=== PATIENT | male | born 1935 | race Caucasian/White ===

== ENCOUNTER 2017-07-27 10:56 | Observation (INO) | payer MEDICARE, OTHER ==
[2017-07-27 11:48] LABS: #Basophils 0.1 thou/uL (0.0-0.2); #Eosinphils 0.4 thou/uL (0.0-0.7); #Lymphocytes 1.9 thou/uL (1.20-3.40); #Monocytes 0.5 thou/uL (0.11-0.59); #Neutrophils 6.3 thou/uL (1.40-6.50); %Basophils 0.6 % (0.0-1.0); %Eosinophils 4.4 % (0.0-10.0); %Lymphocytes 21.1 % (21.0-51.0); %Monocytes 5.8 % (0.0-10.0); Hematocrit 51.3 % (42.0-52.0); Mean Platelet Volume 8.5 fL (7.4-10.4); White Blood Cell (WBC) Count 9.2 thou/uL (4.8-10.8)
[2017-07-27 12:10] LABS: ALT (SGPT) 18 U/L (8-55); AST (SGOT) 19 U/L (5-34); Alkaline Phosphatase 78 U/L (40-150); Anion Gap 13 mmol/L (10-20); BUN (Urea Nitrogen) 12 mg/dL (8.4-25.7); Bilirubin, Total 0.8 mg/dL (0.2-1.2); CK (CPK) 111 U/L (30-200); Calc. Creatinine Clearance 0 mL/min (70-130); Calcium 9.1 mg/dL (7.8-10.44); Carbon Dioxide 25 mmol/L (23-31); Chloride 104 mmol/L (98-107); Estimated GFR-MDRD Greater than 90; Globulin 2.9 g/dL (2.4-3.5); Protein, Total 6.8 g/dL (5.8-8.1)
[2017-07-27 12:19] LABS: Lactic Acid - Sepsis 2.2 mmol/L (0.5-2.2)
--- NOTE | 2017-07-27 12:20 | RAD ---
PORTABLE UPRIGHT FRONTAL CHEST RADIOGRAPH 07/27/2017 COMPARISON: None. HISTORY: Fall, weakness, unsteadiness. FINDINGS: Mild increased linear interstitial density noted bilaterally, right greater than left. There is ath erosclerotic calcification in the aortic arch. No pneumothorax, pleural fluid, focal consolidation, or alveolar edema. IMPRESSION: No acute findings. POS: [facility]
[2017-07-27 12:21] LABS: Troponin I Less than 0.010 ng/mL (< 0.028)
--- NOTE | 2017-07-27 12:51 | RAD ---
LEFT SHOULDER THREE VIEWS: HISTORY: An 82-year-old male with left shoulder pain following an injury while falling yesterday from dizzine ss. FINDINGS: Three views of the left shoulder demonstrate arthrosis changes of the AC joint and glenohumeral join t. No acute fracture or dislocation. IMPRESSION: Degenerative changes without fracture or dislocation. POS: [facility]
--- NOTE | 2017-07-27 13:59 | CT ---
NONCONTRAST CT CERVICAL SPINE 07/27/2017 HISTORY: Bilateral shoulder pain and back pain after a fall. TECHNIQUE: Contiguous axial CT images are obtained through the cervical spine from the level of the skull base to the T1-2 level. Sagittal and coronal reformatted images are provided. FINDINGS: There are post-surgical changes at the C1-2 level with metallic cerclage wires transfixing the poste rior elements of C1 and C2. There is trace anterolisthesis of C3 on C4 and C4 on C5 likely related to prominent facet degenerative changes. There is fusion of the C2 and C3 vertebral bodies with sug gestion of fusion of the posterior elements of the C3 and C4 vertebral bodies. The vertebral body heights are within normal limits. Multilevel degenerative changes are present wi th narrowing of intervertebral disk spaces at all levels of the cervical spine. Prominent multileve l facet hypertrophic changes with multilevel severe neural foraminal narrowing due to bony encroachm ent as well as mild degrees of central canal narrowing again related to bony encroachment. No acute fracture seen involving the cervical spine. Prevertebral soft tissues are within normal limits. Prominent vascular calcifications seen in the carotid arteries. Mild chronic lung changes seen in the upper lobes bilaterally, asymmetrically greater on the right. IMPRESSION: 1. No acute fracture is visualized. 2. Fusion of the C1-2, C2-3, and C3-4 levels. 3. Trace anterolisthesis of C3 on C4 and C4 on C5. 4. Multilevel degenerative changes with multilevel severe bilateral neural foraminal narrowing due t o prominent bony encroachment. POS: [facility]
--- NOTE | 2017-07-27 14:12 | CT ---
CT ANGIOGRAM THORAX WITH IV CONTRAST AND 3D RECONSTRUCTIONS: 07/27/2017 HISTORY: The patient complains of shoulder pain and back pain, as well as dizziness. COMPARISON: None available. FINDINGS: No filling defects are seen in the pulmonary arteries to suggest a pulmonary embolus. The thoracic aorta is unopacified, as this exam was tailored for evaluation of the pulmonary arteries. Vascular calcifications are seen in the thoracic aorta and, to a lesser extent, involving the coronary arteri es. The thoracic aorta is normal in caliber. The mediastinal structures otherwise have a normal CT appearance. There is dependent atelectasis bilaterally. This exam was also obtained in the expiratory phase of imaging. There is an approximately 4 mm nodular density in the right middle lobe, which cannot be f urther characterized. There is also a small pleural-based nodular density along the most superior a spect of the left major fissure, which measures 4 mm as well. No pleural effusion is present. Mini mal calcified pleural-based plaques are seen at the left lung base. A few calcified granuloma are seen within the right lung. Calcified granuloma are seen in the liver and spleen. Multilevel degenerative changes are seen in the thoracic spine. IMPRESSION: 1. No CT evidence of a pulmonary embolus. 2. Vascular calcifications in the thoracic aorta. The thoracic aorta is not opacified for evaluati on of aortic dissection, but no significant aneurysmal dilatation of the thoracic aorta is appreciat ed. 3. Tiny, approximately 4 mm nodular densities, which appear pleural-based in both the right upper l van zones. POS: [facility]
--- NOTE | 2017-07-27 14:15 | CT ---
BRAIN CT WITHOUT IV CONTRAST: Date: 07/27/17 HISTORY: 82-year-old male with history of fall today and yesterday, with weakness and unsteadiness. FINDINGS: Maxillary, sphenoid, and ethmoid sinus mucosal changes are noted. There is atrophy and chronic white matter ischemic changes noted. There is asymmetry of the sulci in the right posterior frontal regio n compared to the left with the right sulci being much less evident. This raises concern for the pos sibility of some subtle subarachnoid hemorrhage associated with this. There is no obvious mass. IMPRESSION: Much less prominent sulci in the right posterior frontal region raising the concern for the possibil ity of some subarachnoid hemorrhage. Findings discussed with Dr. Martinez at approximately 1330 hours. A noncontrast MRI is recommended t o include gradient echo sequence. Sinus mucosal disease. Other findings as above. CODE CR. POS: [facility]
--- NOTE | 2017-07-27 15:03 | MRI ---
BRAIN MRI WITHOUT CONTRAST 07/27/2017 COMPARISON: None. HISTORY: Abnormal head CT, also performed 07/27/2017, demonstrating concern for possible subarachnoid hemorrh age in the right frontal region near the vertex. TECHNIQUE: Multiplanar, multisequence MR imaging of the brain is obtained without contrast. FINDINGS: The diffusion weighted imaging demonstrates no evidence for acute infarction. Axial gradient echo imaging demonstrates no evidence for intracranial hemorrhage. The CT exam performed 07/27/2017 demonstrates a paucity of cortical sulci in the frontal lobe near t he vertex on the right raising concern for a possible subarachnoid hemorrhage. This exam demonstrat es no evidence for subarachnoid hemorrhage in this region. There is an overall moderate degree of c erebral volume loss with relative sparing in the right frontal region in the area of questionable ab normality on prior CT. Arterial flow voids at the axial level of the skull base appear grossly unremarkable on the T2-weigh geoffrey imaging. There is mild mucosal thickening involving the maxillary sinus posteriorly on the right. There is n o midline shift or mass effect. IMPRESSION: Diffuse cerebral volume loss with relative sparing in the right frontal region near the vertex, whic h is the apparent cause for the questionable abnormality seen on recent CT exam. There is no eviden ce for intracranial hemorrhage in this region. No acute infarction. POS: [facility]
[2017-07-27 15:31] LABS: Bilirubin Negative (Negative); Blood, Urine Negative (Negative); Glucose, Urine (Dipstick) Negative (Negative); Ketone, Urine Negative (Negative); Nitrite Negative (Negative); Protein, Urine (Dipstick) Negative (Neg-Trace); Urobilinogen 0.2 mg/dL (0.2-1.0)
[2017-07-27] MEDS ORDERED: ISOVUE-370 76%-LOCM 1 ML ONE (15:40)
[2017-07-27 15:44] LABS: Bacteria/HPF None Seen HPF (None Seen); Hyaline Casts/LPF NONE SEEN LPF (0-3 Hyaline); RBC/HPF None Seen HPF (0-3); Squamous Epithelial 0-3 HPF (0-3)
[2017-07-27 17:10] LABS: Troponin I Less than 0.010 ng/mL (< 0.028)
[2017-07-27] MEDS ORDERED: Ondansetron ODT 4 MG TAB SL PRN (18:33)
[2017-07-27] MEDS ORDERED: Acetaminophen 325 MG TAB PO PRN ×2 (18:33→19:27)
[2017-07-27] MEDS ORDERED: HYDROcodone/Acetaminophen 5/325 mg Tablet PO PRN ×3 (18:33→19:27)
[2017-07-27] MEDS ORDERED: Ondansetron HCl/PF 4 MG/2 ML Vial IVP PRN (18:33)
--- NOTE | 2017-07-27 18:41 | HP ---
PRIMARY CARE PHYSICIAN: Kwadwo Wall M.D. CHIEF COMPLAINT: Chest pain after fall. HISTORY OF PRESENT ILLNESS: Mr. Fofana is an 82-year-old white male with a history of peripheral hilario ropathy and BPH who presents to the emergency department for episode of fall today and soreness. Th e patient states he has been having 2 days of unsteadiness. He describes as dizziness, but denies a ny feeling of syncope or presyncope. Denies any vertigo or spinning. Today, he got up to go somewhere in the house and lost his balance, fell forward into a wall, hittin g his head and chest yesterday. He has got a persistent left shoulder and left anterior chest pain. No shortness of breath, no naus ea, vomiting or diaphoresis, no fevers or chills. No cough or sputum production. Soreness persiste d, so he was brought to the emergency department for evaluation by his daughter. The patient states he does not fall frequently; however, apparently he fell a couple of months ago. He said last time he fell was about 10 years ago, but did recall the episode when his daughter brou ght it up. In the emergency department, workup was negative. We were called to admit for cardiac chest pain. On further evaluation, the patient's blood pressure has been borderline normal. He has been on Lasi x for peripheral edema which he currently has none. Orthostatics were not done. I suspect he may b e volume depleted. PAST MEDICAL HISTORY: No significant problems other than peripheral neuropathy and BPH. PAST SURGICAL HISTORY: 1. Bilateral TKA. 2. C-spine fusion. HOME MEDICATIONS: 1. Gabapentin 600 mg p.o. b.i.d. 2. Lasix 20 mg p.o. q.a.m. 3. Valium 10 mg 1-2 p.o. q8 hours p.r.n. 4. Detrol 2 mg p.o. at bedtime. 5. Hydrocodone/APAP 06/30/25 p.o. as needed. 6. Mucinex 600 mg p.o. b.i.d. ALLERGIES: NKDA. FAMILY HISTORY: Negative for clotting or bleeding disorder, no immune dysfunction. SOCIAL HISTORY: Significant for tobacco. He smokes almost a pack a day for the last 70+ years. No drugs or alcohol. He lives alone. REVIEW OF SYSTEMS: A 10-point review of systems was performed. The patient denies all systems exce pt as stated per HPI. PHYSICAL EXAMINATION: VITAL SIGNS: Temperature 97.9, pulse 64, blood pressure 115/47, respiratory 16, satting 95% on room air. Review of his blood pressure shown dropping down to 80s systolic. GENERAL: He is awake. He is alert. He is oriented x3. He is an obese white male, appears to be i n no acute distress. HEENT: Normocephalic, atraumatic. Pupils equal, round, reactive to light bilaterally, mucous membr anes are moist. He had no visible lesions. No thrush. NECK: Supple, without lymphadenopathy, JVD, or thyromegaly. LUNGS: Clear. He has no wheezes, no rales or rhonchi. No prolonged expiratory phase. CARDIOVASCULAR: Normal S1, S2. No S3 or S4. No audible murmurs. ABDOMEN: Obese, it is nontender, nondistended. I cannot palpate hepatosplenomegaly. EXTREMITIES: No signs of clubbing, no edema. He has 2+ peripheral pulses, dorsalis pedis, posterio r tibial, and radial arteries. SKIN: Warm, moist, and well perfused without any rashes or lesions. He has no ecchymosis. MUSCULOSKELETAL: It is normal to inspection with good range of motion. He has no inflamed joints a nd no palpable joint effusions. NEUROLOGIC: Cranial nerves II-XII to be grossly intact without any focal neurologic deficits. He h as had normal speech and 5/5 strength. LABORATORY DATA: CMP is completely within normal limits. Potassium 4.7, creatinine 0.79, glucose o f 112 and liver functions normal. Lipase less than 4. CBC showed a white count of 9.2, hemoglobin is normal, hematocrit of 51.3, platelets 194,000. RADIOGRAPHIC STUDIES: Brain MRI is negative for acute infarct. A CT angiogram was negative for pul monary embolus. He did have 2-4 mm nodules in the right upper lobe. Brain CT was negative. ASSESSMENT AND PLAN: 1. Presyncope or dizziness. Etiology not clear. We will watch him on telemetry. Place him on obs ervation overnight. We will get orthostatics. Suspect his Lasix has dried him out. He is not selma rely dehydrated as his creatinine is normal. We will recheck his morning labs and watch his I's and O's very closely. We will hold his Lasix. 2. Musculoskeletal chest pain: The patient developed pain after falling to the wall. I do not bel ieve this is cardiac at all. 3. Peripheral neuropathy, on Neurontin. We will continue. 4. Peripheral edema, Lasix on hold. 5. Benign prostatic hypertrophy. We will continue. 6. Chronic pain, on hydrocodone. We will continue. We will place the patient on observation overnight on telemetry and watch. If everything looks grea t, will likely to go home in the morning. The case was discussed with the daughter who was at the [facility]. The patient is FULL CODE and she is the next of kin if there is any problem.
[2017-07-27] MEDS ORDERED: Aspirin 325 MG TAB PO SCH (18:45)
[2017-07-27] MEDS ORDERED: HYDROcodone/Acetaminophen 10/325 mg Tablet PO PRN ×2 (19:27→20:10)
[2017-07-27] MEDS ORDERED: Ondansetron ODT 4 MG TAB PO PRN (19:27)
[2017-07-27 19:57] LABS: Troponin I Less than 0.010 ng/mL (< 0.028)
[2017-07-27] MEDS: Sodium Chloride 0.9% 1,000 ML IV SCH (20:46)
[2017-07-27] MEDS: Famotidine 20 MG TAB PO SCH (20:47)
[2017-07-27] MEDS: Nicotine 14 MG PATCH TD SCH ×2 (20:48→21:16)
[2017-07-27 22:35] VITALS: BMI 39.2
[2017-07-28 05:04] LABS: #Basophils 0.1 thou/uL (0.0-0.2); #Eosinphils 0.4 thou/uL (0.0-0.7); #Lymphocytes 3.2 thou/uL (1.20-3.40); #Monocytes 0.7 thou/uL (0.11-0.59); #Neutrophils 4.4 thou/uL (1.40-6.50); %Basophils 1.1 % (0.0-1.0); %Eosinophils 4.8 % (0.0-10.0); %Lymphocytes 36.4 % (21.0-51.0); %Monocytes 8.1 % (0.0-10.0); Hematocrit 45.3 % (42.0-52.0); Mean Platelet Volume 8.7 fL (7.4-10.4); Red Blood Cell (RBC) Count 4.44 mill/uL (4.70-6.10); White Blood Cell (WBC) Count 8.9 thou/uL (4.8-10.8)
[2017-07-28] MEDS: Sodium Chloride 0.9% 1,000 ML IV SCH (05:12)
[2017-07-28 05:20] LABS: Anion Gap 10 mmol/L (10-20); BUN (Urea Nitrogen) 11 mg/dL (8.4-25.7); Calc. Creatinine Clearance 127 mL/min (70-130); Calcium 8.6 mg/dL (7.8-10.44); Carbon Dioxide 27 mmol/L (23-31); Chloride 104 mmol/L (98-107); Estimated GFR-MDRD Greater than 90; Magnesium 1.8 mg/dL (1.6-2.6)
[2017-07-28 05:23] LABS: Troponin I Less than 0.010 ng/mL (< 0.028)
[2017-07-28 07:57] VITALS: TEMP 97.7
[2017-07-28] MEDS: Famotidine 20 MG TAB PO SCH (08:16)
[2017-07-28] MEDS ORDERED: Enoxaparin Sodium 40 MG/0.4 ML SYRINGE SC SCH (09:00)
[2017-07-28 12:09] VITALS: BP 146/76
--- NOTE | 2017-07-28 14:13 | DIS ---
DATE OF ADMISSION: 07/27/2017 DATE OF DISCHARGE: 07/28/2017 DISCHARGE DIAGNOSES: 1. Orthostasis. 2. Dehydration secondary to Lasix. 3. Fall from same level causing injury. 4. Musculoskeletal chest pain secondary to fall. 5. Peripheral neuropathy. 6. Chronic back pain. 7. History of cervical spine stenosis status post fusion. CONSULTATIONS: Physical therapy. PROCEDURES: None. HISTORY AND PHYSICAL: Mr. Fofana is an 82-year-old male who has had a couple of days of worsened diz ziness than normal and has had multiple falls at home. This last time, he fell one day prior to admission on 07/26 and ran his chest into the wall. He con tinued to have chest soreness through the and into , so presented in the Emergency Departme for evaluation. There, initial exam showed normal labs, his vital signs appeared normal and we were called for a wor kup for cardiac chest pain. HOSPITAL COURSE: The patient was seen and examined in the Emergency Department and was immediately cleared. This was not a cardiac chest pain issue. His pain was across the precordium and tender to palpation, worse with movement. On review of his medicines, it looks like he had been taking Lasix p.r.n. for edema and blood pressu re was borderline normal. The patient was placed in observation and taken to the floor. Initial or thostatics on arrival showed him to drop 35 points systolic over 20 points diastolic when changing p ositions. He was given IV fluids and watched overnight. His serial cardiac biomarkers were negativ e, his telemetry remained normal. The patient was seen in the morning of 07/28, after fluids his repeat orthostatics showed no drop an d in fact a slight increase in pressure going from lying to sitting to standing. His telemetry dinora ined negative and moderate markers are normal. Physical therapy was consulted who saw the patient, and felt he would benefit from home health care with physical therapy. An arrangement was made for the patient to be discharged, his daughter did come in and we discussed his current level of needs and what his insurance will cover. At the end, the daughter was agreeabl e to home physical therapy. PHYSICAL EXAMINATION: The patient was seen and examined on the day of discharge. Discharge plan an d disposition were discussed with the patient [id number] at the bedside. DISCHARGE MEDICATIONS: 1. Valium 10 mg p.o. t.i.d. p.r.n. 2. Gabapentin 600 mg p.o. t.i.d. 3. Hydrocodone p.r.n. 10/325 one q.8 hours. 4. Detrol 2 mg p.o. at bedtime. 5. Guaifenesin 600 mg p.o. b.i.d. p.r.n. cough. 6. His Lasix has been held. FOLLOWUP APPOINTMENTS: 1. Primary care physician, Dr. Kwadwo Wall, within a week. 2. Home physical therapy to see the patient. DISCHARGE CONDITION: Stable. DISPOSITION: The patient will be discharged home via private vehicle. INSTRUCTIONS: Patient to return for worsening symptoms, new falls or injuries or change in status.
== END 2017-07-28 15:07 | disposition home or self-care (01) ==
LOC: ERS 10:56 → 2NO 17:58
PROVIDERS: ADMIT Internal Medicine Infectious Disease; ATTEND Internal Medicine Infectious Disease
DX: I95.1 Orthostatic hypotension (principal); E86.0 Dehydration; R07.89 Other chest pain; G62.9 Polyneuropathy, unspecified; G89.29 Other chronic pain; F17.210 Nicotine dependence, cigarettes, uncomplicated; Z79.899 Other long term (current) drug therapy; Z98.1 Arthrodesis status; Z98.890 Other specified postprocedural states; Z91.81 History of falling
CPT/HCPCS: 70450; 70551; 71010; 71275; 72125; 73030; 80048; 80053; 82550; 82553 ×3; 83605; 83690; 83735; 84484 ×3; 85025 ×2; 87086; 93005; 96360; 96361 ×2; 96372; 97116; 97139 ×2; 97530; 99285; G0378; G8978; G8979; 36415; 81003; 81015; J1650

== ENCOUNTER 2017-07-29 11:32 | Emergency (ER) | payer MEDICARE, OTHER ==
--- NOTE | 2017-07-29 13:04 | RAD ---
RIGHT RIBS: HISTORY: Trauma. Fall with injury to right chest. FINDINGS: No evidence of rib fracture identified. No other rib lesions seen. IMPRESSION: No evidence of right rib fracture. POS: [facility]
[2017-07-29 14:55] LABS: #Basophils 0.1 thou/uL (0.0-0.2); #Eosinphils 0.2 thou/uL (0.0-0.7); #Lymphocytes 2.3 thou/uL (1.20-3.40); #Monocytes 1.3 thou/uL (0.11-0.59); #Neutrophils 10.7 thou/uL (1.40-6.50); %Basophils 0.7 % (0.0-1.0); %Eosinophils 1.5 % (0.0-10.0); %Lymphocytes 15.9 % (21.0-51.0); %Monocytes 8.8 % (0.0-10.0); Hematocrit 49.9 % (42.0-52.0); Mean Platelet Volume 8.3 fL (7.4-10.4); Red Blood Cell (RBC) Count 4.93 mill/uL (4.70-6.10); White Blood Cell (WBC) Count 14.7 thou/uL (4.8-10.8)
[2017-07-29 15:15] LABS: ALT (SGPT) 18 U/L (8-55); AST (SGOT) 25 U/L (5-34); Alkaline Phosphatase 78 U/L (40-150); Anion Gap 17 mmol/L (10-20); BUN (Urea Nitrogen) 10 mg/dL (8.4-25.7); Bilirubin, Total 1.3 mg/dL (0.2-1.2); Calc. Creatinine Clearance 0 mL/min (70-130); Calcium 9.2 mg/dL (7.8-10.44); Carbon Dioxide 21 mmol/L (23-31); Chloride 102 mmol/L (98-107); Estimated GFR-MDRD Greater than 90; Globulin 2.8 g/dL (2.4-3.5); Protein, Total 6.6 g/dL (5.8-8.1)
[2017-07-29] MEDS ORDERED: Ketorolac Tromethamine 30 MG/ML VIAL ONE (16:31)
[2017-07-29 16:35] LABS: Bilirubin Negative (Negative); Blood, Urine Trace (Negative); Glucose, Urine (Dipstick) Negative (Negative); Ketone, Urine 15 mg/dL (Negative); Nitrite Negative (Negative); Protein, Urine (Dipstick) Negative (Neg-Trace)
[2017-07-29 16:37] LABS: Bacteria/HPF None Seen HPF (None Seen); Hyaline Casts/LPF 0-3 HYALINE CAST LPF (0-3 Hyaline); Squamous Epithelial 0-3 HPF (0-3)
[2017-07-29 16:56] LABS: Renal Epithelial 0-3 HPF (0-3); Transitional Epithelial 0-3 HPF (0-3)
--- NOTE | 2017-08-08 12:54 | EKG ---
Test Reason : ERS.NMA Blood Pressure : / mmHG Vent. Rate : 078 BPM Atrial Rate : 078 BPM P-R Int : 176 ms QRS Dur : 078 ms QT Int : 388 ms P-R-T Axes : 064 002 030 degrees QTc Int : 442 ms Sinus rhythm with Premature supraventricular complexes and with occasional Premature ventricular com plexes Possible Left atrial enlargement Borderline ECG Confirmed by JOSE QUIÑONES MD ([id number]), technical writer and editor THIERRY CAMPUZANO ([id number]) on 08/08/2017 12:54:28 PM Referred By: Confirmed By:JOSE QUIÑONES MD
== END 2017-07-29 17:30 | disposition home or self-care (01) ==
LOC: ERS 11:32
DX: S20.211A Contusion of right front wall of thorax, initial encounter (principal); F17.210 Nicotine dependence, cigarettes, uncomplicated; Z79.891 Long term (current) use of opiate analgesic; Z79.899 Other long term (current) drug therapy; W01.190A Fall on same level from slipping, tripping and stumbling with subsequent striking against furniture, initial encounter
CPT/HCPCS: 36415; 51701; 80053; 81003; 81015; 85025; 93005; 96372; J1885

== ENCOUNTER 2021-03-17 22:51 | Inpatient (IN) | payer MEDICARE, OTHER ==
[2021-03-17 23:32] LABS: #Basophils 0.1 thou/uL (0.0-0.2); #Lymphocytes 1.8 thou/uL (1.20-3.40); #Neutrophils 6.7 thou/uL (1.40-6.50); %Basophils 0.6 % (0.0-1.0); %Eosinophils 0.2 % (0.0-10.0); %Lymphocytes 18.9 % (21.0-51.0); %Monocytes 10.5 % (0.0-10.0); %Neutrophils 69.8 % (42.0-75.0); Hemoglobin 14.6 g/dL (14.0-18.0); Mean Corpuscular HGB CONC 34.2 g/dL (32.0-36.0); Mean Corpuscular Hemoglobin 34.6 pg (27.0-31.0); Mean Platelet Volume 8.3 fL (7.4-10.4); Platelet Count 190 thou/uL (130-400); RBC Distribution Width 11.8 % (11.5-14.5); Red Blood Cell (RBC) Count 4.21 mill/uL (4.70-6.10); White Blood Cell (WBC) Count 9.6 thou/uL (4.8-10.8)
[2021-03-18 00:29] LABS: Albumin 3.5 g/dL (3.4-4.8)
[2021-03-18 00:30] LABS: Chloride 103 mmol/L (98-107); Potassium 4.3 mmol/L (3.5-5.1); Sodium 141 mmol/L (136-145)
[2021-03-18 00:31] LABS: Calcium 8.6 mg/dL (7.8-10.44)
[2021-03-18 00:32] LABS: Globulin 2.9 g/dL (2.4-3.5); Glucose 121 mg/dL (83-110); Protein, Total 6.4 g/dL (5.8-8.1)
[2021-03-18 00:33] LABS: Anion Gap 17 mmol/L (10-20); Bilirubin, Total 1.3 mg/dL (0.2-1.2); Carbon Dioxide 25 mmol/L (23-31)
[2021-03-18 00:35] LABS: Alkaline Phosphatase 70 U/L (40-110); Calc. Creatinine Clearance 0 mL/min (70-130)
[2021-03-18 00:36] LABS: BUN (Urea Nitrogen) 13 mg/dL (8.4-25.7)
[2021-03-18 00:36] LABS: Bacteria/HPF None Seen HPF (None Seen); Bilirubin Negative (Negative); Blood, Urine 2+ (Negative); Clarity Clear (Clear); Glucose, Urine (Dipstick) Normal (Negative); Ketone, Urine Trace mg/dL (Negative); Leukocyte 500 Leu/uL (Negative); Nitrite Negative (Negative); Protein, Urine (Dipstick) 20 mg/dL (Neg-Trace); Squamous Epithelial None Seen HPF (0-3); Urobilinogen Normal mg/dL (Less than 2); pH, Urine 5.5 (5.0-9.0)
[2021-03-18 00:37] LABS: ALT (SGPT) 15 U/L (8-55); AST (SGOT) 35 U/L (5-34)
[2021-03-18 00:38] LABS: CK (CPK) 812 U/L (30-200)
[2021-03-18] MEDS ORDERED: cefTRIAXone\\ROCEPHIN 2 GM VIAL ONE (01:12)
[2021-03-18] MEDS ORDERED: Ondansetron PF 4 MG/2 ML Vial IVP PRN (03:50)
[2021-03-18] MEDS ORDERED: Acetaminophen 325 MG TAB PO PRN (03:50)
[2021-03-18] MEDS ORDERED: Acetaminophen 650 MG Suppository PR PRN (03:50)
[2021-03-18] MEDS ORDERED: Ondansetron ODT 4 MG TAB PO PRN (03:50)
[2021-03-18 04:41] VITALS: BMI 26.9
[2021-03-18] MEDS: HYDROcodone/Acetaminophen 5/325 mg Tablet PO PRN ×3 (05:10→18:11)
[2021-03-18] MEDS: cefTRIAXone\\ROCEPHIN 1 GM in Sodium Chloride 0.9% 100 ML IVPB SCH (06:23)
[2021-03-18] MEDS: Enoxaparin Sodium 40 MG/0.4 ML SYRINGE SC SCH (07:57)
[2021-03-18] MEDS ORDERED: Mineral Oil ENEMA PR SCH (08:45)
[2021-03-18 10:54] LABS: SARS-CoV-2 PCR by NAA Not Detected (NotDetected)
[2021-03-19] MEDS: cefTRIAXone\\ROCEPHIN 1 GM in Sodium Chloride 0.9% 100 ML IVPB SCH (05:10)
[2021-03-19] MEDS: HYDROcodone/Acetaminophen 5/325 mg Tablet PO PRN ×3 (05:16→14:37)
[2021-03-19 06:02] LABS: #Eosinphils 0.3 thou/uL (0.0-0.7); #Lymphocytes 1.6 thou/uL (1.20-3.40); #Monocytes 0.5 thou/uL (0.11-0.59); #Neutrophils 4.7 thou/uL (1.40-6.50); %Basophils 0.5 % (0.0-1.0); %Eosinophils 4.5 % (0.0-10.0); %Lymphocytes 22.1 % (21.0-51.0); %Monocytes 7.5 % (0.0-10.0); %Neutrophils 65.4 % (42.0-75.0); Hemoglobin 12.6 g/dL (14.0-18.0); Mean Corpuscular HGB CONC 34.7 g/dL (32.0-36.0); Mean Corpuscular Hemoglobin 34.7 pg (27.0-31.0); Mean Corpuscular Volume 99.8 fL (78.0-98.0); Mean Platelet Volume 7.7 fL (7.4-10.4); Platelet Count 165 thou/uL (130-400); RBC Distribution Width 11.6 % (11.5-14.5); Red Blood Cell (RBC) Count 3.64 mill/uL (4.70-6.10); White Blood Cell (WBC) Count 7.1 thou/uL (4.8-10.8)
[2021-03-19 06:26] LABS: Anion Gap 10 mmol/L (10-20); BUN (Urea Nitrogen) 10 mg/dL (8.4-25.7); Calc. Creatinine Clearance 85 mL/min (70-130); Calcium 8.5 mg/dL (7.8-10.44); Carbon Dioxide 25 mmol/L (23-31); Chloride 105 mmol/L (98-107); Glucose 94 mg/dL (83-110); Potassium 3.3 mmol/L (3.5-5.1); Sodium 137 mmol/L (136-145)
[2021-03-19] MEDS: Enoxaparin Sodium 40 MG/0.4 ML SYRINGE SC SCH (08:19)
[2021-03-20] MEDS: cefTRIAXone\\ROCEPHIN 1 GM in Sodium Chloride 0.9% 100 ML IVPB SCH (05:13)
[2021-03-20] MEDS: HYDROcodone/Acetaminophen 5/325 mg Tablet PO PRN ×2 (08:11→18:05)
[2021-03-20] MEDS: Enoxaparin Sodium 40 MG/0.4 ML SYRINGE SC SCH (08:12)
[2021-03-20 08:38] VITALS: TEMP 97.8
[2021-03-20 09:51] VITALS: BP 135/80
== END 2021-03-20 18:22 | disposition home or self-care (01) | DRG 558 ==
LOC: ERS 22:51 → T4-A 03-18 02:39 → OBSVTOIN 03-20 10:10
PROVIDERS: ADMIT Student in an Organized Health Care Education/Training Program; ATTEND Internal Medicine
DX: M62.82 Rhabdomyolysis (principal); N39.0 Urinary tract infection, site not specified; F03.90 Unspecified dementia, unspecified severity, without behavioral disturbance, psychotic disturbance, mood disturbance, and anxiety; M79.7 Fibromyalgia; G62.9 Polyneuropathy, unspecified; Z96.653 Presence of artificial knee joint, bilateral; F17.210 Nicotine dependence, cigarettes, uncomplicated; R29.6 Repeated falls; I50.9 Heart failure, unspecified; Z20.822 Contact with and (suspected) exposure to COVID-19; Z98.890 Other specified postprocedural states
CPT/HCPCS: 36415; 51701; 71045; 80048; 80053; 81003; 81015; 82550; 83880; 84484; 85025; 87086; 96365; 96372; 96376; G0378; J0696; J1650; J2405; J3490; U0003; U0005